=== PATIENT | female | born 1985 | race Caucasian/White ===

== ENCOUNTER → 2017-01-12 | Outpatient (CLI) | payer BC | LOC: SUN.DIA 08:51 | DX: O24.419 Gestational diabetes mellitus in pregnancy, unspecified control (principal); Z3A.29 29 weeks gestation of pregnancy; Z71.3 Dietary counseling and surveillance | CPT/HCPCS: G0108 ==

== ENCOUNTER → 2017-02-07 | Outpatient (CLI) | payer BC | LOC: SUN.DIA 02-06 13:43 | DX: O24.419 Gestational diabetes mellitus in pregnancy, unspecified control (principal); Z3A.33 33 weeks gestation of pregnancy; Z71.3 Dietary counseling and surveillance | CPT/HCPCS: G0108 ==

== ENCOUNTER 2017-03-09 15:37 | Inpatient (IN) | payer BC ==
[~2017-03-09] VITALS: Ht 154.9 cm; Wt 62.7 kg
[2017-03-23] VITALS (16 sets, daily range): BP systolic 100–128; BP diastolic 63–78; PULSE 78–105; TEMP 97.3–98.7
[2017-03-23] MEDS ORDERED: PRENATAL1 TA7 PO (10:40)
[2017-03-23] MEDS ORDERED: ASPIRIN 81M81 MG/TA2 PO (10:40)
[2017-03-23] MEDS ORDERED: TYLENOL PM EXTR1 TA1 PO (10:41)
[2017-03-23 10:44] LABS: BASO % 0.3 % (0.0-2.0); EOS # 0.1 (0.0-0.7); EOS % 0.9 % (0-4.0); GRAN # 7.8 (1.4-6.5); GRAN % 77.2 % (42.2-75.2); LYMPH # 1.3 (1.2-3.4); LYMPH % 13.1 % (20.0-51.0); MEAN CELL VOLUME 84 fl (80.0-100.0); MEAN CORPUSCULAR HGB CONC 33 g/dl (33.0-37.0); MONO # 0.8 (0.1-0.6); MONO % 7.9 % (1.7-9.3); PLATELET COUNT 166 K/mm3 (130-400); RED BLOOD COUNT 4.01 M/mm3 (4.10-5.30); WHITE BLOOD COUNT 10.1 K/mm3 (4.8-10.8)
[2017-03-23 10:49] LABS: HEMATOCRIT 33.7 % (37.0-47.0); HEMOGLOBIN 11.1 g/dl (12.5-16.0); MEAN CORPUSCULAR HEMOGLOBIN 28 pg (27.0-31.0)
[2017-03-24 03:20] VITALS: BP 97/61; PULSE 81; TEMP 97.9
[2017-03-24 07:00] VITALS: BP 112/75; PULSE 81; TEMP 97.8
[2017-03-24 11:45] VITALS: BP 110/72; PULSE 86; TEMP 97.7
[2017-03-24 16:48] VITALS: BP 108/69; PULSE 77; TEMP 97.6
[2017-03-24 20:25] VITALS: BP 114/79; PULSE 112; TEMP 97.8
[2017-03-25 08:00] VITALS: BP 113/75; PULSE 90; TEMP 97.9
[2017-03-25] MEDS ORDERED: IBU600 MG PO (09:25)
[2017-03-25] MEDS ORDERED: PERCOCET 325 MG1 TA2 PO (09:26)
== END 2017-03-25 10:45 | disposition home or self-care (01) | DRG 765 ==
LOC: LDR 03-23 06:44 → OB 03-23 10:01 → LDR 03-30 15:36
PROVIDERS: Obstetrics & Gynecology
PROC: 10D00Z1 Extraction of Products of Conception, Low, Open Approach (ICD-10-PCS; principal; 2017-03-23)
PROC: 0UT70ZZ Resection of Bilateral Fallopian Tubes, Open Approach (ICD-10-PCS; 2017-03-23)
DX: O34.211 Maternal care for low transverse scar from previous cesarean delivery (principal); O36.0130 Maternal care for anti-D [Rh] antibodies, third trimester, not applicable or unspecified; N85.8 Other specified noninflammatory disorders of uterus; O24.420 Gestational diabetes mellitus in childbirth, diet controlled; Z3A.39 39 weeks gestation of pregnancy; Z37.0 Single live birth; Z40.03 Encounter for prophylactic removal of fallopian tube(s)
CPT/HCPCS: J0690; J1885; J2270; J2370; J2405; J2590; J7120

== ENCOUNTER → 2017-04-27 | Outpatient (CLI) | payer BC ==
[~2017-04-27] MED LIST: ASPIRIN 81M81 MG/TA2 PO; IBU600 MG PO; PERCOCET 325 MG1 TA2 PO; PRENATAL1 TA7 PO; TYLENOL PM EXTR1 TA1 PO
== END ==
LOC: MC.RAD 09:37
DX: D24.2 Benign neoplasm of left breast (principal); D24.1 Benign neoplasm of right breast